=== PATIENT | male | born 1980 | race African-American/Black ===

== ENCOUNTER 2024-09-03 14:52 | Emergency (ER) | payer BC ==
[~2024-09-03] VITALS: Ht 185.4 cm; Wt 97.0 kg
[2024-09-03 15:06] VITALS: TEMP 36.7; O2SAT 98
[2024-09-03] MEDS ORDERED: HYDROMORPHONE HCL/PF 2MG/ML INJ IM STA (15:26)
[2024-09-03] MEDS: HYDROMORPHONE HCL/PF 1MG/ML INJ IM NR (15:41)
[2024-09-03] MEDS ORDERED: OXYCODONE HCL/ACETAMINOPHEN 5/325MG TABLET PO STA (16:32)
[2024-09-03] MEDS ORDERED: OXYC-100 MT (16:52)
[2024-09-03] MEDS ORDERED: P20 PO (16:52)
[2024-09-03] MEDS: PREDNISONE 20MG TABLET PO STA (16:58)
[2024-09-03] MEDS: OXYCODONE HCL/ACETAMINOPHEN 5/325MG TABLET PO NR (16:58)
[2024-09-03 17:08] VITALS: BP 139/79; PULSE 65; RESP 20; O2SAT 98
== END 2024-09-03 17:16 | disposition home or self-care (01) ==
LOC: ER 14:52 → EEVIPCON 14:52 → ER 17:16
DX: S16.1XXA Strain of muscle, fascia and tendon at neck level, initial encounter (principal); M54.12 Radiculopathy, cervical region; Z79.52 Long term (current) use of systemic steroids; X58.XXXA Exposure to other specified factors, initial encounter; Y93.89 Activity, other specified; Y92.89 Other specified places as the place of occurrence of the external cause; Y99.8 Other external cause status
CPT/HCPCS: 99285; 72141; 96372; J1171; J7512